=== PATIENT | male | born 1950 | race Caucasian/White ===

== ENCOUNTER 2017-05-11 17:15 | Inpatient (IN) | payer MEDICARE, OTHER ==
[~2017-05-11] VITALS: Ht 182.9 cm; Wt 74.9 kg
[~2017-05-11 17:15] MED LIST: ASPI81CH CHEW; ATEN25TA PO; CIPR0.3S EACH EAR; CYCL5TAB PO; LISI-519 PO; PRAV10TA PO; SPIR25TA PO
[2017-05-11] MEDS ORDERED: SODIUM CHLORIDE 0.9% FLUSH 10 ML FLUSH IVF PRN (17:30)
[2017-05-11] MEDS ORDERED: SODIUM CHLOR 0.9% 1000 ML INJ 1,000 ML IV ONE ×2 (17:30→18:15)
--- NOTE | 2017-05-11 17:38 | RADRPT ---
EXAM DATE/TIME: 05/11/2017 17:31 [facility] COMPARISON: No previous studies available for comparison. INDICATIONS : Chest pain MEDICAL HISTORY : Myocardial infarction. SURGICAL HISTORY : None. ENCOUNTER: Initial ACUITY: 1 day PAIN SCORE: 8/10 LOCATION: Bilateral chest FINDINGS: A single view of the chest demonstrates the lungs to be symmetrically aerated without evidence of mas s, infiltrate or effusion. The cardiomediastinal contours are unremarkable. Osseous structures are intact. The patient is rotated towards the right. CONCLUSION: No acute disease. David Kolb MD on May 11, 2017 at 17:35 Board Certified Radiologist. This report was verified electronically.
[2017-05-11 17:39] VITALS: BP 106/68; PULSE 81; RESP 17; TEMP 98.7; O2SAT 100
[2017-05-11 17:42] VITALS: O2SAT 100
[2017-05-11 17:43] LABS: AUTOMATED NEUTROPHIL # 2.3 TH/MM3 (1.8-7.7); BASOPHIL % 0.4 % (0.0-2.0); EOSINOPHIL # 0.2 TH/MM3 (0-0.4); EOSINOPHIL % 5.1 % (0.0-4.0); HEMO FLAGS DIFF FINAL; LYMPH % 28.6 % (9.0-44.0); LYMPHOCYTE # 1.2 TH/MM3 (1.0-4.8); MEAN CELL VOLUME 95.6 FL (80.0-100.0); MEAN CORPUSCULAR HEMOGLOBIN 32.4 PG (27.0-34.0); MEAN CORPUSCULAR HGB CONC 33.9 % (32.0-36.0); MONO % 11.7 % (0.0-8.0); NEUT % 54.2 % (16.0-70.0); PLATELET COUNT 136 TH/MM3 (150-450); RED BLOOD COUNT 3.34 MIL/MM3 (4.50-5.90); RED CELL DISTRIBUTION WIDTH 12.4 % (11.6-17.2); WHITE BLOOD COUNT 4.3 TH/MM3 (4.0-11.0)
[2017-05-11 17:50] LABS: CHLORIDE 94 MEQ/L (98-107); POTASSIUM 3.2 MEQ/L (3.5-5.1); SODIUM (NA) 131 MEQ/L (136-145)
[2017-05-11 17:53] LABS: ANION GAP 11 MEQ/L (5-15); BICARBONATE 26.1 MEQ/L (21.0-32.0); BLOOD UREA NITROGEN 30 MG/DL (7-18); MAGNESIUM 1.7 MG/DL (1.5-2.5)
[2017-05-11 17:55] LABS: APTT (PATIENT) 29.9 SEC (24.3-30.1); INTERNATIONAL NORMALIZED RATIO 1.1 RATIO
[2017-05-11 17:56] LABS: GLOMERULAR FILTRATION RATE 47 ML/MIN (>89)
[2017-05-11 18:09] LABS: CREATINE KINASE 68 U/L (39-308)
--- NOTE | 2017-05-11 18:09 | RADRPT ---
EXAM DATE/TIME: 05/11/2017 17:38 [facility] COMPARISON: CT BRAIN W/O CONTRAST, September 10, 2016, 11:58. INDICATIONS : Fall. RADIATION DOSE: 56.85 CTDIvol (mGy) MEDICAL HISTORY : Cerebrovascular disease. Cardiovascular disease Hypertension.Anticoagulant therapy. SURGICAL HISTORY : Coronary artery stent. ENCOUNTER: Initial ACUITY: 1 day PAIN SCALE: 4/10 LOCATION: cranial TECHNIQUE: Multiple contiguous axial images were obtained of the head. Using automated exposure control and adj ustment of the mA and/or kV according to patient size, radiation dose was kept as low as reasonably a chievable to obtain optimal diagnostic quality images. DICOM format image data is available electro nically for review and comparison. FINDINGS: CEREBRUM: The ventricles are normal for age. No evidence of midline shift, mass lesion, hemorrhage or acute in farction. No extra-axial fluid collections are seen. POSTERIOR FOSSA: The cerebellum and brainstem are intact. The 4th ventricle is midline. The cerebellopontine angle i s unremarkable. EXTRACRANIAL: The visualized portion of the orbits is intact. SKULL: The calvaria is intact. No evidence of skull fracture. CONCLUSION: No acute disease. Anthony Mcleod MD on May 11, 2017 at 18:06 Board Certified Radiologist. This report was verified electronically.
--- NOTE | 2017-05-11 18:13 | PD ---
HPI Chief Complaint: Chest Pain Time Seen by Provider: 17:21 Travel History International Travel<30 days: No Contact w/Intl Traveler<30days: No Traveled to known affect area: No History of Present Illness HPI The patient 66. He arrives by EMS. He drank alcohol today. His friend gave him nitroglycerin. Shortly thereafter he lost consciousness striking his head. In the ER he tells me he has chest pain in the left chest and the right chest. He states it is stabbing. EMS reports the patient had a blood pressure of about 80/40 on scene and after receiving approximately half a liter of saline his blood pressure increased to about 100/60. He has a history of hyperlipidemia and hypertension. He quit smoking 5 weeks ago. States he drinks about 8 beers per week. He has a history of atrial fibrillation and takes aspirin. Patient has a history of coronary artery disease with 5 stents. PFSH Past Medical History Hx Anticoagulant Therapy: Yes Arthritis: Yes Anxiety: Yes Cardiac Catheterization: Yes Cardiovascular Problems: Yes (A-FIB) High Cholesterol: Yes Chest Pain: Yes Cerebrovascular Accident: Yes (cva) Coronary Artery Disease: Yes Diabetes: No (DENIES) Diminished Hearing: No Hypertension: Yes Myocardial Infarction: Yes (x4 or 5) ?: Not Past Surgical History Abdominal Surgery: Yes (resection of colon r/t injury) Appendectomy: Yes Coronary Stent: Yes (x 5) Social History Alcohol Use: Yes (about 8 beers every day) Tobacco Use: No (QUIT X 5 WEEKS) Substance Use: No Allergies-Medications (Allergen,Severity, Reaction): Coded Allergies: Penicillin (Verified Allergy, Severe, SWELLING ALL OVER BODY, 05/11/17) Watermelon (Verified Allergy, Intermediate, SWELLING, 05/11/17) Reported Meds & Prescriptions Reported Meds & Active Scripts Active Reported Aspirin 81 Mg Chew 81 Mg CHEW HS Flexeril (Cyclobenzaprine HCl) 5 Mg Tab 5 Mg PO HS Spironolactone 25 Mg Tab 25 Mg PO HS Pravastatin 10 Mg Tab 10 Mg PO HS Atenolol 25 Mg Tab 12.5 Mg PO HS Lisinopril 5 Mg Tab 5 Mg PO HS Review of Systems ROS Limitations: Intoxication Physical Exam Narrative GENERAL: 66-year-old male well-nourished developed EtOH on breath answers questions SKIN: Warm and dry. HEAD: Atraumatic. Normocephalic. EYES: Pupils equal and round. No scleral icterus. No injection or drainage. ENT: No nasal bleeding or discharge. Mucous membranes pink and moist. NECK: Trachea midline. No JVD. C-collar present. CARDIOVASCULAR: Irregular. The rate is approximately 85. RESPIRATORY: No accessory muscle use. Clear to auscultation. Breath sounds equal bilaterally. GASTROINTESTINAL: Abdomen soft, non-tender, nondistended. Hepatic and splenic margins not palpable. MUSCULOSKELETAL: Extremities without clubbing, cyanosis, or edema. No obvious deformities. NEUROLOGICAL: Awake and alert. No obvious cranial nerve deficits. Motor grossly within normal limits. Five out of 5 muscle strength in the arms and legs. Normal speech. PSYCHIATRIC: Appropriate mood and affect; insight and judgment normal. Data Data Last Documented VS Vital Signs Date Time Temp Pulse Resp B/P Pulse Ox O2 Delivery O2 Flow Rate FiO2 05/11/17 17:42 100 Room Air 05/11/17 17:39 98.7 81 17 106/68 Vital signs reviewed Orders Electrocardiogram (05/11/17 17:21) Basic Metabolic Panel (Bmp) (05/11/17 17:21) Ckmb (Isoenzyme) Profile (05/11/17 17:21) Complete Blood Count With Diff (05/11/17 17:21) Magnesium (Mg) (05/11/17 17:21) Prothrombin Time / Inr (Pt) (05/11/17 17:21) Act Partial Throm Time (Ptt) (05/11/17 17:21) Troponin I (05/11/17 17:21) Chest, Single Ap (05/11/17 17:21) Ecg Monitoring (05/11/17 17:21) Iv Access Insert/Monitor (05/11/17 17:21) Oximetry (05/11/17 17:21) Oxygen Administration (05/11/17 17:21) Sodium Chloride 0.9% Flush (Ns Flush) (05/11/17 17:30) Sodium Chlor 0.9% 1000 Ml Inj (Ns 1000 M (05/11/17 17:30) Ct Brain W/O Iv Contrast(Rout) (05/11/17 17:21) Ct Cerv Spine W/O Contrast (05/11/17 17:39) Drug Screen, Random Urine (05/11/17 18:10) Sodium Chlor 0.9% 1000 Ml Inj (Ns 1000 M (05/11/17 18:15) Alcohol (Ethanol) (05/11/17 17:30) Mri C Spine W/O Contrast (05/11/17 18:46) Admit Order (Ed Use Only) (05/11/17 18:46) Labs Laboratory Tests Test 05/11/17 17:30 White Blood Count 4.3 TH/MM3 Red Blood Count 3.34 MIL/MM3 Hemoglobin 10.9 GM/DL Hematocrit 32.0 % Mean Corpuscular Volume 95.6 FL Mean Corpuscular Hemoglobin 32.4 PG Mean Corpuscular Hemoglobin 33.9 % Concent Red Cell Distribution Width 12.4 % Platelet Count 136 TH/MM3 Mean Platelet Volume 8.2 FL Neutrophils (%) (Auto) 54.2 % Lymphocytes (%) (Auto) 28.6 % Monocytes (%) (Auto) 11.7 % Eosinophils (%) (Auto) 5.1 % Basophils (%) (Auto) 0.4 % Neutrophils # (Auto) 2.3 TH/MM3 Lymphocytes # (Auto) 1.2 TH/MM3 Monocytes # (Auto) 0.5 TH/MM3 Eosinophils # (Auto) 0.2 TH/MM3 Basophils # (Auto) 0.0 TH/MM3 CBC Comment DIFF FINAL Differential Comment Prothrombin Time 12.0 SEC Prothromb Time International 1.1 RATIO Ratio Activated Partial 29.9 SEC Thromboplast Time Sodium Level 131 MEQ/L Potassium Level 3.2 MEQ/L Chloride Level 94 MEQ/L Carbon Dioxide Level 26.1 MEQ/L Anion Gap 11 MEQ/L Blood Urea Nitrogen 30 MG/DL Creatinine 1.50 MG/DL Estimat Glomerular Filtration 47 ML/MIN Rate Random Glucose 92 MG/DL Calcium Level 8.0 MG/DL Magnesium Level 1.7 MG/DL Total Creatine Kinase 68 U/L Troponin I LESS THAN 0.02 NG/ML Ethyl Alcohol Level 197 MG/DL MDM Medical Decision Making Medical Screen Exam Complete: Yes Emergency Medical Condition: Yes Medical Record Reviewed: Yes Differential Diagnosis NSTEMI, unstable angina, coronary vasospasm, PE, PTX, aortic dissection, pericarditis, myocarditis, endocarditis, PNA, esophageal disease, aneurysm, musculoskeletal etiologies, anxiety, cocaine/sympathomimetic abuse Narrative Course CBC & BMP Diagram 05/11/17 17:30 Troponin is less than 0.02 EKG reveals atrial fibrillation rate of 85 Last [address] 05/11/171720 Signed Impressions: Service Date/Time: Thursday, May 11, 2017 17:38 - CONCLUSION: No acute disease. Anthony Mcleod MD Chest X-Ray 05/11/171720 Signed Impressions: Service Date/Time: Thursday, May 11, 2017 17:31 - CONCLUSION: No acute disease. David Kolb MD Last 24 hours Impressions Cervical Spine CT 05/11/[id number] Signed Impressions: Service Date/Time: Thursday, May 11, 2017 17:38 - CONCLUSION: 1. Degenerative change throughout as described above. 2. Widening of the right C3 C4 facet joint. This could be related to degenerative change. There is clearly degenerative change in the superior and inferior articular facets at this level. Acute widening of this joint cannot be excluded but no other facet joint or disc space appears widened. Given the lack of any other findings, this is likely related to degenerative change. It could be further evaluated with an MRI examination if the patient has neck pain, especially on the right side. 3. Moderate stenosis at C3-C4 level secondary to a diffuse disc bulge and facet hypertrophy. David Kolb MD Head CT 05/11/171720 Signed Impressions: Service Date/Time: Thursday, May 11, 2017 17:38 - CONCLUSION: No acute disease. Anthony Mcleod MD Chest X-Ray 05/11/171720 Signed Impressions: Service Date/Time: Thursday, May 11, 2017 17:31 - CONCLUSION: No acute disease. David Kolb MD Case discussed with Dr. Clemens. We'll send the patient to the main. MR study ordered. Order for Dr. Clemens be notified following the MR performance has been placed. Diagnosis Primary Impression: Chest pain Qualified Code: R07.9 - Chest pain, unspecified type Additional Impressions: Syncope and collapse Abnormal x-ray of cervical spine Alcohol intoxication Qualified Code: F10.929 - Alcohol intoxication, with unspecified complication Admitting Information Admitting Physician Requests: Observation Kel Auguste MD May 11, 2017 18:13
--- NOTE | 2017-05-11 18:31 | RADRPT ---
EXAM DATE/TIME: 05/11/2017 17:38 [facility] COMPARISON: No previous studies available for comparison. INDICATIONS : Fall. RADIATION DOSE: 24.16 CTDIvol (mGy) MEDICAL HISTORY : Cerebrovascular disease. Cardiovascular disease. Hypertension. Anticoagulant therapy. SURGICAL HISTORY : Coronary artery stent. ENCOUNTER: Initial ACUITY: 1 day PAIN SCALE: 4/10 LOCATION: Neck TECHNIQUE: Volumetric scanning of the cervical spine was performed. Multiplanar reconstructions in the sagittal, coronal and oblique axial planes were performed. Using automated exposure control and adjustment o f the mA and/or kV according to patient size, radiation dose was kept as low as reasonably achievable to obtain optimal diagnostic quality images. DICOM format image data is available electronically f or review and comparison. FINDINGS: VERTEBRAE: The craniovertebral junction is intact. The C1 ring is intact. The dens is intact. The C1-C2 artic ulation is normal. The cervical vertebral bodies are normal in height. There is minimal anterior shah bluxation of C5 on C6 likely secondary to a facet hypertrophy. The patient does have widening of the right C3-C4 facet joint. There is no malalignment at the facet joints. The left facet joint appear s aligned. There is facet hypertrophy bilaterally at this level being worse on the right. The disc space is preserved at this level. C2-C3: The bony spinal canal is normal in size. No evidence of disc bulge or herniation. The neural forami na are bilaterally patent. There is mild facet hypertrophy. C3-C4: Again noted is the widening of the right facet joint. There is irregularity at the facet joint likel y from underlying chronic degenerative change. No other facet joint appears widened. The facet join t widening measures 3.5 mm. The remaining facet joints measure approximately 2 mm in thickness. The re appears to be mild disc bulge. There does appear to be narrowing of the thecal sac. There is unc overtebral hypertrophy being worse on the right. There is narrowing of the right neural foramen. Th e left neural foramen appears grossly intact. C4-C5: There is minimal disc bulge. There does appear to be CSF around the cord. There are mild anterior m arginal osteophytes. There is moderate facet hypertrophy. There is mild uncovertebral hypertrophy. The neural foramina are grossly intact. C5-C6: Again noted is the mild anterior subluxation of C5 on C6. There is mild bulging at the disc. There is severe facet hypertrophy being worse on the right. There is mild bilateral uncovertebral hypertro phy. There is minimal narrowing of the neural foramina especially on the left. C6-C7: The disc demonstrates mild decreased height. A significant impression on the thecal sac is not seen. There is moderate facet hypertrophy. There is mild to moderate uncovertebral hypertrophy. The be ral foramina appear grossly intact. C7-T1: The disc space is intact. No spinal stenosis is identified. There is mild facet hypertrophy. The n eural foramina are normal. CONCLUSION: 1. Degenerative change throughout as described above. 2. Widening of the right C3 C4 facet joint. This could be related to degenerative change. There is clearly degenerative change in the superior and inferior articular facets at this level. Acute wide zander of this joint cannot be excluded but no other facet joint or disc space appears widened. Given the lack of any other findings, this is likely related to degenerative change. It could be further e valuated with an MRI examination if the patient has neck pain, especially on the right side. 3. Moderate stenosis at C3-C4 level secondary to a diffuse disc bulge and facet hypertrophy. David Kolb MD on May 11, 2017 at 18:07 Board Certified Radiologist. This report was verified electronically.
[2017-05-11 19:00] VITALS: BP 107/66; PULSE 76; RESP 17; O2SAT 100
[2017-05-11] MEDS ORDERED: NALOXONE HCL 0.4 MG/ML AMP IV PRN (19:15)
[2017-05-11] MEDS ORDERED: MAGNESIUM HYDROXIDE SUSP 30 ML CUP PO PRN (19:15)
[2017-05-11] MEDS ORDERED: ONDANSETRON HCL 4 MG/2 ML VIAL IVP PRN (19:15)
[2017-05-11] MEDS ORDERED: SENNOSIDES 8.6 MG TAB PO PRN (19:15)
[2017-05-11] MEDS ORDERED: SODIUM CHLORIDE 0.9% FLUSH 10 ML FLUSH IV FLUSH PRN (19:15)
[2017-05-11] MEDS ORDERED: BISACODYL 10 MG SUPP RECTAL PRN (19:15)
[2017-05-11] MEDS ORDERED: LACTULOSE SYRUP 20 GM/30 ML CUP PO PRN (19:15)
[2017-05-11 20:14] LABS: AMPHETAMINE, URINE NEG (NEG); BARBITURATES, URINE NEG (NEG)
[2017-05-11 20:15] LABS: COCAINE, URINE NEG (NEG)
[2017-05-11] MEDS: HEPARIN SODIUM - SQ 10,000 UNITS/ML VIAL SQ SCH (20:54)
[2017-05-11 20:55] VITALS: BP 115/70; PULSE 93; RESP 18; O2SAT 96
--- NOTE | 2017-05-11 21:04 | RADRPT ---
EXAM DATE/TIME: 05/11/2017 20:14 [facility] COMPARISON: No previous studies available for comparison. INDICATIONS : Trauma. Fall and hit head today. MEDICAL HISTORY : Cardiovascular disease Hypertension. Hypercholesterolemia. AFIB SURGICAL HISTORY : Appendectomy. Colon resection. Stent placement. ENCOUNTER: Initial ACUITY: 1 day PAIN SCORE: 3/10 LOCATION: Bilateral neck region. TECHNIQUE: Multiplanar, multisequence MRI examination of the cervical spine was performed. FINDINGS: Cervical spondylosis is noted at C3-C4, C4-C5, C5-C6 and C6-C7. Moderate circumferential spinal sten osis is noted at C3-C4 secondary to a diffuse disc bulge and facet joint hypertrophy bilaterally. Mo derate bilateral foraminal narrowing is also noted. Mild circumferential spinal stenosis and moderat e bilateral foraminal narrowing is noted at C4-C5 and C5-C6 secondary to diffuse disc bulges and face t joint hypertrophy bilaterally. Minimal circumferential spinal stenosis and mild bilateral foramina l narrowing is noted at C6-C7 secondary to diffuse disc bulge and facet joint hypertrophy bilaterally . The cervical spinal cord is normal in signal intensity and morphology. CONCLUSION: 1. Moderate spinal stenosis and bilateral foraminal narrowing at C3-C4. 2. Mild spinal stenosis and moderate bilateral foraminal narrowing at C4-C5 and C5-C6. 3. Minimal spinal stenosis and mild bilateral foraminal narrowing at C6-C7. Anthony Mcleod MD on May 11, 2017 at 20:53 Board Certified Radiologist. This report was verified electronically.
[2017-05-11 21:22] VITALS: BP 132/86; PULSE 81; RESP 18; TEMP 97.8; O2SAT 100
[2017-05-11] MEDS: ASPIRIN 81 MG CHEW TAB CHEW SCH (22:19)
[2017-05-11] MEDS: SODIUM CHLORIDE 0.9% FLUSH 10 ML FLUSH IV FLUSH SCH (22:19)
[2017-05-11] MEDS: PRAVASTATIN SOD 10 MG TAB PO SCH (22:19)
[2017-05-11] MEDS: LISINOPRIL 5 MG TAB PO SCH (22:20)
[2017-05-11] MEDS: SPIRONOLACTONE 25 MG TAB PO SCH (22:20)
[2017-05-11] MEDS: DOCUSATE SODIUM 50 MG/SENNA 8.6 MG TAB PO SCH (22:20)
[2017-05-11] MEDS: ATENOLOL 25 MG TAB PO SCH (22:21)
[2017-05-11] MEDS: CYCLOBENZAPRINE HCL 10 MG TAB PO SCH (22:22)
[2017-05-12] VITALS (8 sets, daily range): BP systolic 115–143; BP diastolic 74–93; PULSE 75–94; RESP 16–20; TEMP 97.9–98.3; O2SAT 97–100
[2017-05-12] MEDS: ACETAMINOPHEN/HYDROcodone 325 MG/10 MG TAB PO PRN ×3 (04:30→21:55)
--- NOTE | 2017-05-12 07:55 | HHI.HP ---
History of Present Illness Service Family Primary Care Physician Dr. Clemens Admission Diagnosis Chest Pain, EtOH, Radiographic CSpine Abnormality, Syncope Diagnoses: (1) Hyponatremia (2) Hypertension (3) Alcohol intoxication (4) Syncope and collapse (5) Chest pain (6) Abnormal x-ray of cervical spine History of Present Illness Patient is a 66 year old male who presented to ED via EMS s/p syncopal event and chest pain. Patient reports that over the last few months he has had chest discomfort on and off that has gone away with antacids. Yesterday he reported that his chest pain was much worse. He did take nitroglycerin. Reported that when he lost consciousness he hit head. Head CT with no acute findings. MRI of spine showing mild to moderate spinal stenosis and bilateral foraminal narrowing. 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 He has a past medical history CAD with 5 stents he thought the last stents where placed in 2011 to 2013. He also has a past medical history of arthritis, NE, AFIB, HTN, HLD, and ETOH abuse. He quit smoking 5 weeks ago. He drinks about 8 beers per day with a alcohol level of 197 in ED. Cardiology consulted and initial troponin less 0.02. Patient was also found to be hyponatremic at 131 and hypokalemic at 3.2 Review of Systems Constitutional: COMPLAINS OF: Fatigue, DENIES: Change in appetite Respiratory: DENIES: Cough, Snoring, Sputum production, Shortness of breath Cardiovascular: COMPLAINS OF: Chest pain, DENIES: Palpitations, Lower Extremity Edema Gastrointestinal: DENIES: Abdominal pain, Bloody stools, Constipation, Diarrhea Musculoskeletal: DENIES: Muscle aches, Stiffness Psychiatric: DENIES: Confusion, Depression, Agitation Past Family Social History Allergies: Coded Allergies: Penicillin (Verified Allergy, Severe, SWELLING ALL OVER BODY, 05/11/17) Watermelon (Verified Allergy, Intermediate, SWELLING, 05/11/17) Past Medical History HTN HLD AFIB Arthritis CAD Past Surgical History Colon resection Appendectomy coronary stent X 5 Active Ordered Medications Current Medications Medications (Trade) Dose Ordered Sig/Teo Route Start Time Stop Time Status Last Admin (NS Flush) 2 ml UNSCH PRN IV FLUSH 05/11/17 19:15 (NS Flush) 2 ml BID IV FLUSH 05/11/17 21:00 05/11/17 22:19 (Zofran Inj) 4 mg Q6H PRN IVP 05/11/17 19:15 (Heparin Inj) 5,000 units Q12H SQ 05/11/17 20:00 05/11/17 20:54 (Narcan Inj) 0.4 mg UNSCH PRN IV 05/11/17 19:15 (Jen-Colace) 1 tab BID PO 05/11/17 21:00 05/11/17 22:20 (Milk Of Magnesia Liq) 30 ml Q12H PRN PO 05/11/17 19:15 (Senokot) 17.2 mg Q12H PRN PO 05/11/17 19:15 (Dulcolax Supp) 10 mg DAILY PRN RECTAL 05/11/17 19:15 (Lactulose Liq) 30 ml DAILY PRN PO 05/11/17 19:15 (Aspirin Chew) 81 mg HS CHEW 05/11/17 21:00 05/11/17 22:19 (Tenormin) 12.5 mg HS PO 05/11/17 21:00 05/11/17 22:21 (Flexeril) 5 mg HS PO 05/11/17 21:00 05/11/17 22:22 (Prinivil) 5 mg HS PO 05/11/17 21:00 05/11/17 22:20 (Pravachol) 10 mg HS PO 05/11/17 21:00 05/11/17 22:19 (Aldactone) 25 mg HS PO 05/11/17 21:00 05/11/17 22:20 (Protonix) 40 mg DAILY PO 05/12/17 09:00 ([place] 10-325 Mg) 1 tab Q6H PRN PO 05/11/17 23:45 05/12/17 04:30 Family History Mother with HTN Father diabetes and heart disease Social History Drinks 8 beers per day Quit smoking 5 weeks ago Lives with friend Retired Physical Exam Vital Signs Vital Signs Date Time Temp Pulse Resp B/P Pulse Ox O2 Delivery O2 Flow Rate FiO2 05/12/17 04:00 98.0 93 18 131/79 100 05/12/17 01:31 75 05/12/17 00:00 98.0 83 16 115/81 99 05/11/17 21:22 97.8 81 18 132/86 100 05/11/17 20:55 93 18 115/70 96 Room Air 05/11/17 19:00 76 17 107/66 100 Room Air 05/11/17 17:42 100 Room Air 05/11/17 17:42 100 Room Air 05/11/17 17:39 98.7 81 17 106/68 100 Physical Exam GENERAL: 66 year old male cooperative SKIN: Warm and dry. Bug bites present HEAD: Atraumatic. Normocephalic. EYES: Pupils equal and round. No scleral icterus. No injection or drainage. ENT: No nasal bleeding or discharge. Mucous membranes pink and moist. NECK: Trachea midline. No JVD. C-collar present. CARDIOVASCULAR: Irregular. The rate is approximately 85. RESPIRATORY: No accessory muscle use. Clear to auscultation. Breath sounds equal bilaterally. GASTROINTESTINAL: Abdomen soft, non-tender, nondistended. MUSCULOSKELETAL: Extremities without clubbing, cyanosis, or edema. No obvious deformities. NEUROLOGICAL: Awake and alert. Normal speech. PSYCHIATRIC: Appropriate mood and affect; insight and judgment normal. Laboratory Laboratory Tests Test 05/11/17 05/11/17 17:30 19:59 White Blood Count 4.3 Red Blood Count 3.34 Hemoglobin 10.9 Hematocrit 32.0 Mean Corpuscular Volume 95.6 Mean Corpuscular Hemoglobin 32.4 Mean Corpuscular Hemoglobin 33.9 Concent Red Cell Distribution Width 12.4 Platelet Count 136 Mean Platelet Volume 8.2 Neutrophils (%) (Auto) 54.2 Lymphocytes (%) (Auto) 28.6 Monocytes (%) (Auto) 11.7 Eosinophils (%) (Auto) 5.1 Basophils (%) (Auto) 0.4 Neutrophils # (Auto) 2.3 Lymphocytes # (Auto) 1.2 Monocytes # (Auto) 0.5 Eosinophils # (Auto) 0.2 Basophils # (Auto) 0.0 CBC Comment DIFF FINAL Differential Comment Prothrombin Time 12.0 Prothromb Time International 1.1 Ratio Activated Partial 29.9 Thromboplast Time Sodium Level 131 Potassium Level 3.2 Chloride Level 94 Carbon Dioxide Level 26.1 Anion Gap 11 Blood Urea Nitrogen 30 Creatinine 1.50 Estimat Glomerular Filtration 47 Rate Random Glucose 92 Calcium Level 8.0 Magnesium Level 1.7 Total Creatine Kinase 68 Troponin I LESS THAN 0.02 Ethyl Alcohol Level 197 Urine Opiates Screen NEG Urine Barbiturates Screen NEG Urine Amphetamines Screen NEG Urine Benzodiazepines Screen NEG Urine Cocaine Screen NEG Urine Cannabinoids Screen NEG Result Diagram: 05/11/17 1730 05/11/17 1730 Imaging Last 72 hours Impressions Cervical Spine MRI 05/11/17 1846 Signed Impressions: Service Date/Time: Thursday, May 11, 2017 20:14 - CONCLUSION: 1. Moderate spinal stenosis and bilateral foraminal narrowing at C3-C4. 2. Mild spinal stenosis and moderate bilateral foraminal narrowing at C4-C5 and C5-C6. 3. Minimal spinal stenosis and mild bilateral foraminal narrowing at C6-C7. Anthony Mcleod MD Cervical Spine CT 05/11/17 1739 Signed Impressions: Service Date/Time: Thursday, May 11, 2017 17:38 - CONCLUSION: 1. Degenerative change throughout as described above. 2. Widening of the right C3 C4 facet joint. This could be related to degenerative change. There is clearly degenerative change in the superior and inferior articular facets at this level. Acute widening of this joint cannot be excluded but no other facet joint or disc space appears widened. Given the lack of any other findings, this is likely related to degenerative change. It could be further evaluated with an MRI examination if the patient has neck pain, especially on the right side. 3. Moderate stenosis at C3-C4 level secondary to a diffuse disc bulge and facet hypertrophy. David Kolb MD Head CT 05/11/17 172 Signed Impressions: Service Date/Time: Thursday, May 11, 2017 17:38 - CONCLUSION: No acute disease. Anthony Mcleod MD Chest X-Ray 05/11/17 172 Signed Impressions: Service Date/Time: Thursday, May 11, 2017 17:31 - CONCLUSION: No acute disease. David oKlb MD Assessment and Plan Problem List: (1) Chest pain Status: Acute Plan: Patient denies chest pain this AM. Cardiology consulted. Trop pending this AM initial trop less than 0.02. (2) Hyponatremia Status: Acute Plan: Sodium 131 recheck in AM will monitor (3) Hypertension Status: Acute Plan: Continue current regimen well controlled (4) Syncope and collapse Status: Acute Plan: Will monitor. After cardiac evaluation will obtain PT (5) Alcohol intoxication Status: Acute Plan: Will add folic acid and thiamine daily (6) Abnormal x-ray of cervical spine Status: Acute Plan: Mild to moderate spinal stenosis and bilateral foraminal narrowing. Will discuss with Dr. Clemens and start PT after cardiology evaluation. (7) Afib Status: Acute Plan: Patient reports that he thought he has had this before however is only on aspirin. Cardiology to recommend anticoagulation. (8) HLD (hyperlipidemia) Status: Acute Plan: Lipid panel ordered. Continue statin (9) Hypokalemia Status: Acute Plan: Labs pending this AM. K 3.2 in ER Assessment and Plan Assessment and plan discussed with Dr. Clemens Discussed Condition With Nursing Discharge Planning Home Physician Attestation I and the ORTHOPEDIC ASSISTANT have both examined this patient and reviewed this note and I agree with these findings and plan of care. Bg Clemens DO Problem Qualifiers (1) Alcohol intoxication: Qualified Code: F10.929 - Alcohol intoxication, with unspecified complication (2) Chest pain: Qualified Code: R07.9 - Chest pain, unspecified type Karla Schreiber [facility] May 12, 2017 07:55
[2017-05-12] MEDS: HEPARIN SODIUM - SQ 10,000 UNITS/ML VIAL SQ SCH ×2 (08:00→21:57)
[2017-05-12 08:29] LABS: AUTOMATED NEUTROPHIL # 2.6 TH/MM3 (1.8-7.7); BASOPHIL % 0.3 % (0.0-2.0); EOSINOPHIL # 0.4 TH/MM3 (0-0.4); EOSINOPHIL % 7.5 % (0.0-4.0); HEMATOCRIT 31.9 % (39.0-51.0); HEMO FLAGS DIFF FINAL; LYMPH % 30.8 % (9.0-44.0); LYMPHOCYTE # 1.6 TH/MM3 (1.0-4.8); MEAN CELL VOLUME 94.9 FL (80.0-100.0); MEAN CORPUSCULAR HEMOGLOBIN 33.5 PG (27.0-34.0); MEAN CORPUSCULAR HGB CONC 35.3 % (32.0-36.0); NEUT % 50.4 % (16.0-70.0); PLATELET COUNT 139 TH/MM3 (150-450); RED BLOOD COUNT 3.36 MIL/MM3 (4.50-5.90); RED CELL DISTRIBUTION WIDTH 13.5 % (11.6-17.2); WHITE BLOOD COUNT 5.2 TH/MM3 (4.0-11.0)
[2017-05-12 08:43] LABS: ALT (GPT) 76 U/L (12-78); ANION GAP 8 MEQ/L (5-15); AST (GOT) 120 U/L (15-37); BICARBONATE 25.8 MEQ/L (21.0-32.0); BLOOD UREA NITROGEN 25 MG/DL (7-18); CHLORIDE 100 MEQ/L (98-107); GLOMERULAR FILTRATION RATE 62 ML/MIN (>89); POTASSIUM 4.1 MEQ/L (3.5-5.1); SODIUM (NA) 134 MEQ/L (136-145)
[2017-05-12 08:46] LABS: ALKALINE PHOSPHATASE 86 U/L (45-117); TOTAL BILIRUBIN ADULT 0.9 MG/DL (0.2-1.0)
[2017-05-12] MEDS: THIAMINE HCL 100 MG TAB PO SCH (09:48)
[2017-05-12] MEDS: DOCUSATE SODIUM 50 MG/SENNA 8.6 MG TAB PO SCH ×2 (09:49→21:00)
[2017-05-12] MEDS: FOLIC ACID 1 MG TAB PO SCH (09:49)
[2017-05-12] MEDS: SODIUM CHLORIDE 0.9% FLUSH 10 ML FLUSH IV FLUSH SCH ×2 (09:49→22:02)
[2017-05-12] MEDS: PANTOPRAZOLE SOD 40 MG DELAYED RELEASE TAB PO SCH (09:49)
[2017-05-12 10:13] LABS: MAGNESIUM 1.6 MG/DL (1.5-2.5)
[2017-05-12 10:22] LABS: FREE T3 2.23 PG/ML (2.18-3.98); FREE T4 1.19 NG/DL (0.76-1.46)
[2017-05-12] MEDS: MAGNESIUM SULFATE 1 GM PREMIX 100 ML IV SCH ×2 (11:53→13:00)
--- NOTE | 2017-05-12 18:03 | MB ---
cc: DANTE HUNTER DATE OF CONSULTATION 05/12/2017 HISTORY Mr. Ruiz is a 66-year-old white male with history of coronary artery disease, myocardial infarction, coronary stenting. He has had a several week history of sharp substernal chest discomfort which lasts for several seconds and is improved with antacids. It usually occurs at rest. He had syncope prior to admission and hit his head. He recently moved from [place]. He is a heavy drinker. PAST MEDICAL HISTORY Positive for: 1. Coronary artery disease, five stent placement several years ago. 2. Hypertension. 3. Dyslipidemia. 4. Atrial fibrillation. 5. Arthritis. 6. Colon resection. 7. Appendectomy. MEDICATIONS Include: 1. Lisinopril. 2. Atenolol. 3. Cyclobenzaprine. 4. Pravastatin. 5. Spironolactone. 6. Aspirin. ALLERGIES PENICILLIN, [place]ELON. SOCIAL HISTORY Patient quit smoking 5 months ago. He drinks about eight beers daily. FAMILY HISTORY Positive for heart disease in his father. REVIEW OF SYSTEMS Otherwise negative. PHYSICAL EXAMINATION VITAL SIGNS: Blood pressure 130/75, pulse 87 and regular. HEENT: Negative. 2+ carotid upstrokes. No bruits. LUNGS: Clear. HEART: Irregular. No murmur, gallop or rub. ABDOMEN: Soft. No bruits. EXTREMITIES: Without edema. + distal pulses. NEUROLOGIC: Examination grossly nonfocal. SKIN: With multiple insect bites. EKG was reviewed and showed . DIAGNOSES 1. Atypical chest pain. 2. Coronary artery disease with history of myocardial infarction and coronary stenting. 3. Chronic atrial fibrillation. 4. Hypertension. 5. Dyslipidemia. 6. Heavy alcohol use. 7. Previous history of smoking. 8. Syncope. DISPOSITION Mr. Ruiz will be monitored on telemetry. He has history of chronic atrial fibrillation but refused to take warfarin in the past. He has been ruled out for myocardial function by enzymes. His chest pain is atypical. Recommend to continue therapy for coronary artery disease including aggressive modification of his cardiac risk factors. We will obtain records from his previous foxer out of state. I will follow him for cardiology during his hospitalization. He is interested to follow up in our office for his cardiac problems. He was counseled to decrease the heavy alcohol use. MD DWAIN Brian /2:15 PM /5:55 PM
[2017-05-12] MEDS: ASPIRIN 81 MG CHEW TAB CHEW SCH (21:54)
[2017-05-12] MEDS: LISINOPRIL 5 MG TAB PO SCH (21:54)
[2017-05-12] MEDS: CYCLOBENZAPRINE HCL 10 MG TAB PO SCH (21:54)
[2017-05-12] MEDS: SPIRONOLACTONE 25 MG TAB PO SCH (21:55)
[2017-05-12] MEDS: ATENOLOL 25 MG TAB PO SCH (21:56)
[2017-05-12] MEDS: PRAVASTATIN SOD 10 MG TAB PO SCH (21:56)
[2017-05-13] VITALS: BP 146/80; PULSE 84; RESP 16; TEMP 97.8; O2SAT 98
[2017-05-13 04:00] VITALS: BP 142/89; PULSE 98; RESP 18; TEMP 98.9; O2SAT 97
--- NOTE | 2017-05-13 07:27 | HHI.FF ---
Face to Face Verification Diagnosis: (1) Afib (2) Hypertension (3) Chest pain Home Health Nursing Order: Medical education Signs/symptoms of disease process Medication education-adverse effect I have seen patient Sergey Ruiz on 05/13/17. My clinical findings support the need for the requested home health care services because: Med compliance is questionable Need for psychosocial assistance I certify that my clinical findings support that this patient is homebound because: Need for psychosocial assistance Poor cardiac reserve Karla Schreiber May 13, 2017 07:27
--- NOTE | 2017-05-13 07:54 | EKG ---
Date Performed: 05/11/2017 Time Performed: 19:36:42 PTAGE: 66 years EKG: ATRIAL FIBRILLATION ABNORMAL RHYTHM ECG PREVIOUS TRACING : 05/11/2017 17.33 DOCTOR: Nichol Cotton Interpretating Date/Time 05/13/2017 07:53:58
--- NOTE | 2017-05-13 07:56 | EKG ---
Date Performed: 05/11/2017 Time Performed: 17:33:22 PTAGE: 66 years EKG: ATRIAL FIBRILLATION NONSPECIFIC T-WAVE ABNORMALITY ABNORMAL RHYTHM ECG PREVIOUS TRACING : 09/10/2016 13.58 DOCTOR: Nichol Cotton Interpretating Date/Time 05/13/2017 07:54:57
[2017-05-13 08:00] VITALS: BP 151/79; PULSE 96; RESP 20; TEMP 98; O2SAT 96
[2017-05-13] MEDS: SODIUM CHLORIDE 0.9% FLUSH 10 ML FLUSH IV FLUSH SCH (09:08)
[2017-05-13] MEDS: DOCUSATE SODIUM 50 MG/SENNA 8.6 MG TAB PO SCH (09:08)
[2017-05-13] MEDS: PANTOPRAZOLE SOD 40 MG DELAYED RELEASE TAB PO SCH (09:08)
[2017-05-13] MEDS: THIAMINE HCL 100 MG TAB PO SCH (09:08)
[2017-05-13] MEDS: HEPARIN SODIUM - SQ 10,000 UNITS/ML VIAL SQ SCH (09:08)
[2017-05-13] MEDS: FOLIC ACID 1 MG TAB PO SCH (09:08)
[2017-05-13] MEDS: ACETAMINOPHEN/HYDROcodone 325 MG/10 MG TAB PO PRN (09:14)
[2017-05-13 09:16] VITALS: PULSE 116
[2017-05-13 10:16] LABS: AUTOMATED NEUTROPHIL # 2.3 TH/MM3 (1.8-7.7); BASOPHIL % 0.8 % (0.0-2.0); EOSINOPHIL # 0.4 TH/MM3 (0-0.4); EOSINOPHIL % 11.2 % (0.0-4.0); HEMATOCRIT 32.3 % (39.0-51.0); HEMO FLAGS DIFF FINAL; LYMPH % 18.1 % (9.0-44.0); LYMPHOCYTE # 0.7 TH/MM3 (1.0-4.8); MEAN CELL VOLUME 96.1 FL (80.0-100.0); MEAN CORPUSCULAR HEMOGLOBIN 33.7 PG (27.0-34.0); MEAN CORPUSCULAR HGB CONC 35.1 % (32.0-36.0); MONO % 11.7 % (0.0-8.0); NEUT % 58.2 % (16.0-70.0); PLATELET COUNT 142 TH/MM3 (150-450); RED BLOOD COUNT 3.36 MIL/MM3 (4.50-5.90); RED CELL DISTRIBUTION WIDTH 13.5 % (11.6-17.2); WHITE BLOOD COUNT 3.9 TH/MM3 (4.0-11.0)
[2017-05-13 10:52] LABS: BICARBONATE 27.5 MEQ/L (21.0-32.0); POTASSIUM 4.2 MEQ/L (3.5-5.1)
[2017-05-13 10:57] LABS: HDL CHOLESTEROL 38.1 MG/DL (40.0-60.0)
[2017-05-13 12:00] VITALS: BP 150/90; PULSE 88; RESP 20; TEMP 98.4; O2SAT 99
[2017-05-13] MEDS ORDERED: ATEN25TA PO (13:18)
[2017-05-13] MEDS ORDERED: PANT40TA3 PO (13:18)
[2017-05-13] MEDS ORDERED: GNP100TA3 PO (13:18)
[2017-05-13] MEDS ORDERED: SPIR25 PO (13:18)
[2017-05-13] MEDS ORDERED: FOLI1TAB6 PO (13:18)
[2017-05-13] MEDS ORDERED: ASPI81CH25 CHEW (13:18)
[2017-05-13] MEDS ORDERED: PRAV10TA PO (13:18)
[2017-05-13] MEDS ORDERED: LISI-519 PO (13:18)
[2017-05-13] MEDS ORDERED: CYCL1TAB29 PO (13:18)
--- NOTE | 2017-05-13 13:28 | HHI.DS ---
Discharge Summary Admission Date May 11, 2017 at 18:50 Admitting Diagnosis Chest Pain, EtOH, Radiographic CSpine Abnormality, Syncope (1) Alcohol intoxication (2) Afib (3) Hypertension (4) Hyponatremia Brief History Patient is a 66 year old male who presented to ED via EMS s/p syncopal event and chest pain. Patient reports that over the last few months he has had chest discomfort on and off that has gone away with antacids. Yesterday he reported that his chest pain was much worse. He did take nitroglycerin. Reported that when he lost consciousness he hit head. Head CT with no acute findings. MRI of spine showing mild to moderate spinal stenosis and bilateral foraminal narrowing. He is not followed by a automotive porter in this state. He has a past medical history CAD with 5 stents he thought the last stents where placed in 2011 to 2013. He also has a past medical history of arthritis, OR, AFIB, HTN, HLD, and ETOH abuse. He quit smoking 5 weeks ago. He drinks about 8 beers per day with a alcohol level of 197 in ED. Cardiology consulted and initial troponin less 0.02. Patient was also found to be hyponatremic at 131 and hypokalemic at 3.2 CBC/BMP: 05/13/17 0914 05/13/17 0914 Significant Findings Laboratory Tests Test 05/11/17 05/12/17 05/13/17 17:30 07:42 09:14 Red Blood Count 3.34 MIL/MM3 3.36 MIL/MM3 3.36 MIL/MM3 (4.50-5.90) (4.50-5.90) (4.50-5.90) Hemoglobin 10.9 GM/DL 11.3 GM/DL 11.3 GM/DL (13.0-17.0) (13.0-17.0) (13.0-17.0) Hematocrit 32.0 % 31.9 % 32.3 % (39.0-51.0) (39.0-51.0) (39.0-51.0) Platelet Count 136 TH/MM3 139 TH/MM3 142 TH/MM3 (150-450) (150-450) (150-450) Monocytes (%) (Auto) 11.7 % 11.0 % 11.7 % (0.0-8.0) (0.0-8.0) (0.0-8.0) Eosinophils (%) (Auto) 5.1 % (0.0-4.0) 7.5 % (0.0-4.0) 11.2 % (0.0-4.0) Prothrombin Time 12.0 SEC (9.8-11.6) Sodium Level 131 MEQ/L 134 MEQ/L 134 MEQ/L (136-145) (136-145) (136-145) Potassium Level 3.2 MEQ/L (3.5-5.1) Chloride Level 94 MEQ/L (98-107) Blood Urea Nitrogen 30 MG/DL (7-18) 25 MG/DL (7-18) 21 MG/DL (7-18) Creatinine 1.50 MG/DL (0.60-1.30) Estimat Glomerular Filtration 47 ML/MIN (>89) 62 ML/MIN (>89) 64 ML/MIN (>89) Rate Calcium Level 8.0 MG/DL (8.5-10.1) Troponin I LESS THAN 0.02 LESS THAN 0.02 NG/ML NG/ML (0.02-0.05) (0.02-0.05) Ethyl Alcohol Level 197 MG/DL (0-5) Random Glucose 68 MG/DL 128 MG/DL (74-106) (74-106) Aspartate Amino Transf 120 U/L (15-37) (AST/SGOT) Albumin 2.6 GM/DL (3.4-5.0) White Blood Count 3.9 TH/MM3 (4.0-11.0) Lymphocytes # (Auto) 0.7 TH/MM3 (1.0-4.8) Cholesterol Level 73 MG/DL (120-200) HDL Cholesterol 38.1 MG/DL (40.0-60.0) PE at Discharge GENERAL: Alert and cooperative SKIN: Warm and dry. HEAD: Normocephalic. EYES: No scleral icterus. No injection or drainage. NECK: Supple, trachea midline. No JVD or lymphadenopathy. CARDIOVASCULAR: Regular rate and rhythm without murmurs, gallops, or rubs. RESPIRATORY: Breath sounds equal bilaterally. No accessory muscle use. GASTROINTESTINAL: Abdomen soft, non-tender, nondistended. MUSCULOSKELETAL: No cyanosis, or edema. BACK: Nontender without obvious deformity. No CVA tenderness. Hospital Course Patient is a 66 year old male who presented to ED via EMS s/p syncopal event and chest pain. Patient reports that over the last few months he has had chest discomfort on and off that has gone away with antacids. Yesterday he reported that his chest pain was much worse. He did take nitroglycerin. Reported that when he lost consciousness he hit head. Head CT with no acute findings. MRI of spine showing mild to moderate spinal stenosis and bilateral foraminal narrowing. He is not followed by a automotive porter in this state. He has a past medical history CAD with 5 stents he thought the last stents where placed in 2011 to 2013. He also has a past medical history of arthritis, OR, AFIB, HTN, HLD, and ETOH abuse. He quit smoking 5 weeks ago. He drinks about 8 beers per day with a alcohol level of 197 in ED. Cardiology consulted and initial troponin less 0.02 which remained less than 0.02. Patient was followed by automotive porter during his stay and will follow up with cardiology after discharge for any needed tests. He is chest pain free now. He is AFIB and has refused anticoagulation secondary to side effects and cost this has been at length will be followed by cardiology. He was counseled to reduce risk factors and reduce ETOH use. He will be discharged on protonix for GERD which could have been his reason for chest discomfort. He has follow up appt scheduled with [facility]. Pt Condition on Discharge: Good Discharge Disposition: Disch w/ Home Health Serv Discharge Instructions DIET: Follow Instructions for: Heart Healthy Diet Activities you can perform: Regular-No Restrictions New Medications: Aspirin (Aspirin Low Strength) 81 Mg Chew 81 MG CHEW HS Blood Clot Prevention #30 EA Atenolol (Atenolol) 25 Mg Tab 12.5 MG PO HS Blood Pressure Management #30 TAB Cyclobenzaprine (Flexeril) 10 Mg Tab 5 MG PO HS Muscle Spasm #30 TAB Folic Acid (Folic Acid) 1 Mg Tablet 1 MG PO DAILY Electrolyte Replacement #30 BOTTLE Lisinopril (Lisinopril) 5 Mg Tab 5 MG PO HS Blood Pressure Management #30 TAB Pantoprazole (Pantoprazole) 40 Mg Tab 40 MG PO DAILY Manage Heartburn #30 TAB Pravastatin (Pravastatin) 10 Mg Tab 10 MG PO HS Cholesterol Management #30 TAB Spironolactone (Aldactone) 25 Mg Tab 25 MG PO HS Blood Pressure Management #30 TAB Thiamine HCl (Gnp Vitamin B-1) 100 Mg Tab 100 MG PO DAILY Electrolyte Replacement #30 TAB Discontinued Medications: Aspirin (Aspirin) 81 Mg Chew 81 MG CHEW HS Ref 0 TAB Atenolol (Atenolol) 25 Mg Tab 12.5 MG PO HS Blood Pressure Management #30 Ref 0 TAB Cyclobenzaprine (Flexeril) 5 Mg Tab 5 MG PO HS Muscle Spasm #90 Ref 0 TAB Lisinopril (Lisinopril) 5 Mg Tab 5 MG PO HS Blood Pressure Management #30 Ref 0 TAB Pravastatin (Pravastatin) 10 Mg Tab 10 MG PO HS Cholesterol Management #30 Ref 0 TAB Spironolactone (Spironolactone) 25 Mg Tab 25 MG PO HS #30 Ref 0 TAB Karla Schreiber May 13, 2017 13:28
--- NOTE | 2017-05-13 13:55 | PD.CARD.PN ---
Subjective Subjective Remarks CP improved, no SOB, feels better Objective Medications Current Medications Medications (Trade) Dose Ordered Sig/Teo Route Start Time Stop Time Status Last Admin (NS Flush) 2 ml UNSCH PRN IV FLUSH 05/11/17 19:15 (NS Flush) 2 ml BID IV FLUSH 05/11/17 21:00 05/13/17 09:08 (Zofran Inj) 4 mg Q6H PRN IVP 05/11/17 19:15 (Heparin Inj) 5,000 units Q12H SQ 05/11/17 20:00 05/13/17 09:08 (Narcan Inj) 0.4 mg UNSCH PRN IV 05/11/17 19:15 (Jen-Colace) 1 tab BID PO 05/11/17 21:00 05/13/17 09:08 (Milk Of Magnesia Liq) 30 ml Q12H PRN PO 05/11/17 19:15 (Senokot) 17.2 mg Q12H PRN PO 05/11/17 19:15 (Dulcolax Supp) 10 mg DAILY PRN RECTAL 05/11/17 19:15 (Lactulose Liq) 30 ml DAILY PRN PO 05/11/17 19:15 (Aspirin Chew) 81 mg HS CHEW 05/11/17 21:00 05/12/17 21:54 (Tenormin) 12.5 mg HS PO 05/11/17 21:00 05/12/17 21:56 (Flexeril) 5 mg HS PO 05/11/17 21:00 05/12/17 21:54 (Prinivil) 5 mg HS PO 05/11/17 21:00 05/12/17 21:54 (Pravachol) 10 mg HS PO 05/11/17 21:00 05/12/17 21:56 (Aldactone) 25 mg HS PO 05/11/17 21:00 05/12/17 21:55 (Protonix) 40 mg DAILY PO 05/12/17 09:00 05/13/17 09:08 (Buhl 10-325 Mg) 1 tab Q6H PRN PO 05/11/17 23:45 05/13/17 09:14 (Folate) 1 mg DAILY PO 05/12/17 09:00 05/13/17 09:08 (Vitamin B1) 100 mg DAILY PO 05/12/17 09:00 05/13/17 09:08 Vital Signs / I&O Vital Signs Date Time Temp Pulse Resp B/P Pulse Ox O2 Delivery O2 Flow Rate FiO2 05/13/17 12:00 98.4 88 20 150/90 99 05/13/17 09:16 116 05/13/17 08:00 98.0 96 20 151/79 96 05/13/17 04:00 98.9 98 18 142/89 97 05/13/17 00:00 97.8 84 16 146/80 98 05/12/17 20:00 85 05/12/17 20:00 98.1 90 16 143/93 100 05/12/17 16:00 98.1 80 18 136/77 100 I/O 05/12/17 05/12/17 05/12/17 05/13/17 05/13/17 05/13/17 07:00 15:00 23:00 07:00 15:00 23:00 Intake Total 120 ml 669 ml Output Total 0 ml 700 ml 0 ml 120 ml Balance 120 ml -31 ml 0 ml -120 ml Intake Oral 120 ml 480 ml IV Total 189 ml Output Urine Total 0 ml 700 ml 0 ml 120 ml # Bowel Movements 0 1 Physical Exam GENERAL: In NAD SKIN: Warm and dry. HEAD: Normocephalic. EYES: No scleral icterus. No injection or drainage. NECK: Supple, trachea midline. No JVD or lymphadenopathy. CARDIOVASCULAR: irregular rate and rhythm without murmurs, gallops, or rubs. RESPIRATORY: Breath sounds equal bilaterally. No accessory muscle use. GASTROINTESTINAL: Abdomen soft, non-tender, nondistended. MUSCULOSKELETAL: No cyanosis, or edema. Laboratory Laboratory Tests Test 05/13/17 09:14 White Blood Count 3.9 TH/MM3 Red Blood Count 3.36 MIL/MM3 Hemoglobin 11.3 GM/DL Hematocrit 32.3 % Mean Corpuscular Volume 96.1 FL Mean Corpuscular Hemoglobin 33.7 PG Mean Corpuscular Hemoglobin 35.1 % Concent Red Cell Distribution Width 13.5 % Platelet Count 142 TH/MM3 Mean Platelet Volume 8.1 FL Neutrophils (%) (Auto) 58.2 % Lymphocytes (%) (Auto) 18.1 % Monocytes (%) (Auto) 11.7 % Eosinophils (%) (Auto) 11.2 % Basophils (%) (Auto) 0.8 % Neutrophils # (Auto) 2.3 TH/MM3 Lymphocytes # (Auto) 0.7 TH/MM3 Monocytes # (Auto) 0.5 TH/MM3 Eosinophils # (Auto) 0.4 TH/MM3 Basophils # (Auto) 0.0 TH/MM3 CBC Comment DIFF FINAL Differential Comment Sodium Level 134 MEQ/L Potassium Level 4.2 MEQ/L Chloride Level 100 MEQ/L Carbon Dioxide Level 27.5 MEQ/L Anion Gap 7 MEQ/L Blood Urea Nitrogen 21 MG/DL Creatinine 1.15 MG/DL Estimat Glomerular Filtration 64 ML/MIN Rate Random Glucose 128 MG/DL Calcium Level 8.6 MG/DL Magnesium Level 2.0 MG/DL Triglycerides Level 92 MG/DL Cholesterol Level 73 MG/DL LDL Cholesterol 17 MG/DL HDL Cholesterol 38.1 MG/DL Cholesterol/HDL Ratio 1.91 RATIO 25-Hydroxy Vitamin D Total 40.5 ng/ML Imaging Last Impressions Cervical Spine MRI 05/11/17 1846 Signed Impressions: Service Date/Time: Thursday, May 11, 2017 20:14 - CONCLUSION: 1. Moderate spinal stenosis and bilateral foraminal narrowing at C3-C4. 2. Mild spinal stenosis and moderate bilateral foraminal narrowing at C4-C5 and C5-C6. 3. Minimal spinal stenosis and mild bilateral foraminal narrowing at C6-C7. Anthony Mcleod MD Cervical Spine CT 05/11/17 1739 Signed Impressions: Service Date/Time: Thursday, May 11, 2017 17:38 - CONCLUSION: 1. Degenerative change throughout as described above. 2. Widening of the right C3 C4 facet joint. This could be related to degenerative change. There is clearly degenerative change in the superior and inferior articular facets at this level. Acute widening of this joint cannot be excluded but no other facet joint or disc space appears widened. Given the lack of any other findings, this is likely related to degenerative change. It could be further evaluated with an MRI examination if the patient has neck pain, especially on the right side. 3. Moderate stenosis at C3-C4 level secondary to a diffuse disc bulge and facet hypertrophy. David Kolb MD Head CT 05/11/17 1721 Signed Impressions: Service Date/Time: Thursday, May 11, 2017 17:38 - CONCLUSION: No acute disease. Anthony Mcleod MD Chest X-Ray 05/11/17 1721 Signed Impressions: Service Date/Time: Thursday, May 11, 2017 17:31 - CONCLUSION: No acute disease. David Kolb MD Assessment and Plan Problem List: (1) Chest pain (2) Afib (3) CAD (coronary artery disease) (4) ETOH abuse (5) Hypertension (6) HLD (hyperlipidemia) Assessment and Plan Symptoms improved. Cardiac enzymes negative. No evidence of ACS. Discharge home. Will schedule f/u and further evaluation as outpatient. Problem Qualifiers (1) Chest pain: Qualified Code: R07.9 - Chest pain, unspecified type Josafat Turner MD May 13, 2017 13:55
--- NOTE | 2017-05-13 17:07 | EKG ---
Date Performed: 05/12/2017 Time Performed: 12:19:00 PTAGE: 66 years EKG: ATRIAL FIBRILLATION ABNORMAL RHYTHM ECG PREVIOUS TRACING : 05/11/2017 19.36 Compared to prior tracing no significant change DOCTOR: Scottie Grant Interpretating Date/Time 05/13/2017 17:07:19
== END 2017-05-13 15:51 | disposition home health service (06) | DRG 313 ==
LOC: PHED 17:15 → PHEDA 18:50 → N04B 21:22
PROVIDERS: ADMIT Family Medicine; ATTEND Family Medicine
DX: R07.89 Other chest pain (principal); I25.2 Old myocardial infarction; E87.1 Hypo-osmolality and hyponatremia; I48.91 Unspecified atrial fibrillation; M48.02 Spinal stenosis, cervical region; R55 Syncope and collapse; I10 Essential (primary) hypertension; Z79.82 Long term (current) use of aspirin; K21.9 Gastro-esophageal reflux disease without esophagitis; F10.129 Alcohol abuse with intoxication, unspecified; Y90.6 Blood alcohol level of 120-199 mg/100 ml; I25.10 Atherosclerotic heart disease of native coronary artery without angina pectoris; Z95.5 Presence of coronary angioplasty implant and graft; E78.5 Hyperlipidemia, unspecified; M19.90 Unspecified osteoarthritis, unspecified site; Z87.891 Personal history of nicotine dependence; E87.6 Hypokalemia
CPT/HCPCS: 70450; 71010; 72125; 72141; 80048; 80053; 80061; 80307; 82306; 82550; 82948; 83735; 84100; 84439; 84443; 84481; 84484; 85025; 85610; 85730; 93005; J1644; J3475; J7030

== ENCOUNTER 2017-09-17 17:00 | Emergency (ER) | payer MEDICARE, OTHER ==
[2017-09-17 17:00] VITALS: BP 125/89; PULSE 93; RESP 18; TEMP 98.1; O2SAT 98
[~2017-09-17 17:00] MED LIST changes: -ASPI81CH CHEW; +ASPI81CH25 CHEW; -CIPR0.3S EACH EAR; +CYCL10TA PO; -CYCL5TAB PO; +FOLI1TAB6 PO; +PANT40TA3 PO; +SPIR25 PO; -SPIR25TA PO; +THIA100 PO
[2017-09-17 17:05] VITALS: BP 133/84; TEMP 98.3; O2SAT 100
[2017-09-17] MEDS ORDERED: SODIUM CHLOR 0.9% 1000 ML INJ 1,000 ML IV ONE (17:15)
[2017-09-17] MEDS ORDERED: DIPHTH/TETANUS/ACEL PERTUSSIS (BOOSTER) 0.5 ML VIAL/PFS IM ONE (17:15)
--- NOTE | 2017-09-17 17:21 | PD ---
HPI Chief Complaint: Fall Time Seen by Provider: 17:11 Travel History International Travel<30 days: No Contact w/Intl Traveler<30days: No Traveled to known affect area: No History of Present Illness HPI Patient is a 66-year-old male with history of hypertension, hyperlipidemia, atrial fibrillation, presents to the emergency room for alcohol intoxication and falls. Reports that [place], bystanders reported that he had fallen multiple times. When EMS arrived, patient appeared confused. Patient endorses that he is an alcoholic, reports that he drank heavily today as he was angry at his landlord for increasing his rent. Patient denies any suicidal or homicidal ideations at this time. Patient denies any headache or dizziness, denies any chest pain or shortness of breath. Patient with no complaints at this time. PFSH Past Medical History Hx Anticoagulant Therapy: Yes Arthritis: Yes Anxiety: Yes Cancer: Yes (PATIENT DOESN'T REMEMBER) Cardiac Catheterization: Yes Cardiovascular Problems: Yes (NM, HTN, A Fib ) High Cholesterol: Yes Chest Pain: Yes Cerebrovascular Accident: Yes Coronary Artery Disease: Yes Diabetes: No (DENIES) Diminished Hearing: No Endocrine: No Genitourinary: No Hypertension: Yes Immune Disorder: No Musculoskeletal: Yes Neurologic: Yes Psychiatric: No Reproductive: No Respiratory: No Myocardial Infarction: Yes (x4 or 5) Radiation Therapy: Yes Past Surgical History Abdominal Surgery: Yes (APPENDECTOMY) Appendectomy: Yes Cardiac Surgery: Yes (STENTS) Coronary Stent: Yes (x 5) Social History Alcohol Use: Yes (about 8 beers every day) Tobacco Use: No (QUIT X 5 WEEKS) Substance Use: Yes Allergies-Medications (Allergen,Severity, Reaction): Coded Allergies: penicillin G (Unverified Allergy, Severe, SWELLING ALL OVER BODY, 09/17/17) watermelon (Unverified Allergy, Intermediate, SWELLING, 09/17/17) Reported Meds & Prescriptions Reported Meds & Active Scripts Active Gnp Vitamin B-1 (Thiamine HCl) 100 Mg Tab 100 Mg PO DAILY Aspirin Low Strength (Aspirin) 81 Mg Chew 81 Mg CHEW HS Aldactone (Spironolactone) 25 Mg Tab 25 Mg PO HS Pravastatin 10 Mg Tab 10 Mg PO HS Atenolol 25 Mg Tab 12.5 Mg PO HS Lisinopril 5 Mg Tab 5 Mg PO HS Review of Systems ROS Limitations: Intoxication General / Constitutional: No: Fever Eyes: No: Visual changes HENT: No: Headaches Cardiovascular: No: Chest Pain or Discomfort Respiratory: No: Shortness of Breath Gastrointestinal: No: Abdominal Pain Genitourinary: No: Dysuria Musculoskeletal: No: Pain Skin: No Rash Neurologic: No: Weakness Psychiatric: No: Depression Endocrine: No: Polydipsia Hematologic/Lymphatic: No: Easy Bruising Physical Exam Exam Limitations: Intoxication Narrative GENERAL: NAD SKIN: Focused skin assessment warm/dry. HEAD: Normocephalic. Patient with abrasions to forehead EYES: Pupils equal and round. No scleral icterus. No injection or drainage. ENT: No nasal bleeding or discharge. Mucous membranes pink and moist. NECK: Trachea midline. No JVD. CARDIOVASCULAR: Regular rate and rhythm. No murmur appreciated. RESPIRATORY: No accessory muscle use. Clear to auscultation. Breath sounds equal bilaterally. GASTROINTESTINAL: Abdomen soft, non-tender, nondistended. Hepatic and splenic margins not palpable. MUSCULOSKELETAL: No obvious deformities. No clubbing. No cyanosis. No edema. NEUROLOGICAL: Awake and alert. No obvious cranial nerve deficits. Motor grossly within normal limits. Normal speech. PSYCHIATRIC: Anxious mood and affect; patient intoxicated Data Data Last Documented VS Vital Signs Date Time Temp Pulse Resp B/P (MAP) Pulse Ox O2 Delivery O2 Flow Rate FiO2 09/17/17 20:13 90 16 133/87 (102) 100 Room Air 09/17/17 17:[address] Brain W/O Iv Contrast(Rout) (09/17/17 17:11) Ct Cerv Spine W/O Contrast (09/17/17 17:11) Iv Access Insert/Monitor (09/17/17 17:11) Ecg Monitoring (09/17/17 17:11) Oxygen Administration (09/17/17 17:11) Difh-Jqj-Dgszad (Booster) Inj (Boostrix (09/17/17 17:15) Sodium Chlor 0.9% 1000 Ml Inj (Ns 1000 M (09/17/17 17:15) Basic Metabolic Panel (Bmp) (09/17/17 17:12) Prothrombin Time / Inr (Pt) (09/17/17 17:12) Potassium Chloride (Kcl) (09/17/17 18:45) Chest, Pa & Lat (09/17/17 20:11) Acetaminophen (Tylenol) (09/17/17 20:15) Tetanus/Diphtheria Tox Adult (Tetanus/Di (09/17/17 21:30) Labs Laboratory Tests Test 09/17/17 17:50 Prothrombin Time 12.4 SEC Prothromb Time International Ratio 1.1 RATIO Blood Urea Nitrogen 10 MG/DL Creatinine 1.20 MG/DL Random Glucose 98 MG/DL Calcium Level 8.4 MG/DL Sodium Level 132 MEQ/L Potassium Level 3.4 MEQ/L Chloride Level 94 MEQ/L Carbon Dioxide Level 26.3 MEQ/L Anion Gap 12 MEQ/L Estimat Glomerular Filtration Rate 61 ML/MIN MDM Medical Decision Making Medical Screen Exam Complete: Yes Emergency Medical Condition: Yes Medical Record Reviewed: Yes Interpretation(s) Vital Signs Date Time Temp Pulse Resp B/P (MAP) Pulse Ox O2 Delivery O2 Flow Rate FiO2 09/17/17 17:00 98.1 93 18 125/89 (101) 98 Differential Diagnosis ICH, alcohol intoxication, cervical spine fracture Narrative Course 66 year old male who presents to ER with c/o of alcohol intoxication with multiple abrasion to face. Patient denies si/hi - patient with no complaints at this time. During the course of the patients emergency department visit, the patients history, examination, and differential diagnosis were reviewed with the patient. The patient was placed on a director of cardiac cath lab with oximetry and frequent blood pressure monitoring. The patient had [-] IV access obtained and blood work sent for analysis. The patient was initially provided IVF The patients laboratory studies were reviewed and remarkable for: CBC & BMP Diagram 09/17/17 17:50 Calcium Level 8.4 L Radiology studies were reviewed and remarkable for: CT of head: negative for acute process CT of neck: 1. Moderate degenerative changes as described above. There is no evidence of acute fracture. Patient intoxicated at this time. Once sober, plan to discharge patient. Patient clinically sober, he is alert and oriented 3, patient is ambulating emergency with normal gait. Patient is said to be discharged to home with outpatient follow-up. All labs as well as all studies reviewed with patient in detail. He will follow up with his primary care doctor and will return to emergency room as needed. Diagnosis Primary Impression: ETOH abuse Additional Impressions: Alcohol intoxication Qualified Codes: F10.920 - Alcohol use, unspecified with intoxication, uncomplicated Hypokalemia Head injury Qualified Codes: S09.90XA - Unspecified injury of head, initial encounter Patient Instructions: General Instructions Additional Instructions: Please provide patient with a copy of their lab work and studies at discharge* * Please follow up with your primary care doctor in 2-3 days Return to the ER if symptoms worsen or progress Return to the ER as needed Please drink alcohol responsibility Disposition: 01 DISCHARGE HOME Condition: Stable Sveta Leyva DO Sep 17, 2017 17:21
--- NOTE | 2017-09-17 17:35 | RADRPT ---
EXAM DATE/TIME: 09/17/2017 17:16 [facility] COMPARISON: CT BRAIN W/O CONTRAST, May 11, 2017, 17:38. INDICATIONS : Trauma, fall. RADIATION DOSE: 64.28 CTDIvol (mGy) MEDICAL HISTORY : None SURGICAL HISTORY : None. ENCOUNTER: Initial ACUITY: 1 day PAIN SCALE: Non-responsive LOCATION: cranial TECHNIQUE: Multiple contiguous axial images were obtained of the head. Using automated exposure control and adj ustment of the mA and/or kV according to patient size, radiation dose was kept as low as reasonably a chievable to obtain optimal diagnostic quality images. DICOM format image data is available electro nically for review and comparison. FINDINGS: CEREBRUM: The ventricles are normal for age. No evidence of midline shift, mass lesion, hemorrhage or acute in farction. No extra-axial fluid collections are seen. POSTERIOR FOSSA: The cerebellum and brainstem are intact. The 4th ventricle is midline. The cerebellopontine angle i s unremarkable. EXTRACRANIAL: The visualized portion of the orbits is intact. SKULL: The calvaria is intact. No evidence of skull fracture. CONCLUSION: Negative for an acute process. Norberto Ramey MD FACR on September 17, 2017 at 17:33 Board Certified Radiologist. This report was verified electronically.
--- NOTE | 2017-09-17 17:55 | RADRPT ---
EXAM DATE/TIME: 09/17/2017 17:16 [facility] COMPARISON: CT CERVICAL SPINE W/O CONTRAST, May 11, 2017, 17:38. INDICATIONS : Trauma, fall. RADIATION DOSE: 26.35 CTDIvol (mGy) MEDICAL HISTORY : None SURGICAL HISTORY : None. ENCOUNTER: Initial ACUITY: 1 day PAIN SCALE: Non-responsive LOCATION: neck TECHNIQUE: Volumetric scanning of the cervical spine was performed. Multiplanar reconstructions in the sagittal, coronal and oblique axial planes were performed. Using automated exposure control and adjustment o f the mA and/or kV according to patient size, radiation dose was kept as low as reasonably achievable to obtain optimal diagnostic quality images. DICOM format image data is available electronically f or review and comparison. FINDINGS: CT of the cervical spine was performed in sagittal and axial planes. There is anterolisthesis likely related to facet arthritis at C5-C6 of 1-2 mm. 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 There is multilevel disc space narrowing and marginal ost eophyte formation maximal at C4-C5. No focal areas of marrow replacement are identified. The cranioce rvical junction appears normal. C2-C3: No significant abnormalities identified. C3-C4: There is mild annular bulge of the disc. There is osteophytic ridging along the posterior aspect of v ertebral body. There is mild right sided neural foraminal narrowing. C4-C5: No significant abnormalities identified. C5-C6: There is mild annular bulge of the disc. There is moderate facet arthritis bilaterally with ligamentu m flavum hypertrophy. There is mild neural foraminal narrowing bilaterally. There is no significant s mallorie canal stenosis. C6-C7: There is no evidence of disc protrusion or spinal canal stenosis. There is mild facet arthritis bilat erally. The neural foramina are clear bilaterally. C7-T1: No significant abnormalities identified. CONCLUSION: 1. Moderate degenerative changes as described above. There is no evidence of acute fracture. Suleman Elizabeth MD on September 17, 2017 at 17:41 Board Certified Radiologist. This report was verified electronically.
[2017-09-17 18:10] LABS: POTASSIUM 3.4 MEQ/L (3.5-5.1)
[2017-09-17 18:13] LABS: BICARBONATE 26.3 MEQ/L (21.0-32.0)
[2017-09-17 18:14] LABS: INTERNATIONAL NORMALIZED RATIO 1.1 RATIO; PROTHROMBIN TIME - PATIENT 12.4 SEC (9.8-11.6)
[2017-09-17] MEDS ORDERED: POTASSIUM CHLORIDE 10 MEQ CONTROLLED RELEASE TAB PO ONE (18:45)
[2017-09-17 20:13] VITALS: BP 133/87; PULSE 90; RESP 16; O2SAT 100
[2017-09-17] MEDS ORDERED: ACETAMINOPHEN 500 MG CPLT PO ONE (20:15)
--- NOTE | 2017-09-17 21:16 | RADRPT ---
EXAM DATE/TIME: 09/17/2017 20:17 [facility] COMPARISON: No previous studies available for comparison. INDICATIONS : Chest pain post fall today MEDICAL HISTORY : Myocardial infarction SURGICAL HISTORY : None. ENCOUNTER: Initial ACUITY: 1 day PAIN SCORE: 5/10 LOCATION: Bilateral chest FINDINGS: PA and lateral views of the chest demonstrate the lungs to be symmetrically aerated without evidence of mass, infiltrate or effusion. The cardiomediastinal contours are unremarkable. Osseous structure s are intact. Mild atherosclerotic changes are present in the aorta. CONCLUSION: No acute disease. Raad Arnold MD on September 17, 2017 at 21:13 Board Certified Radiologist. This report was verified electronically.
[2017-09-17] MEDS ORDERED: TETANUS/DIPHTHERIA TOXOID ADULT 0.5 ML VIAL IM ONE (21:30)
== END 2017-09-17 21:50 | disposition home or self-care (01) ==
LOC: PHED 17:00
DX: F10.129 Alcohol abuse with intoxication, unspecified (principal); E87.6 Hypokalemia; I10 Essential (primary) hypertension; I25.10 Atherosclerotic heart disease of native coronary artery without angina pectoris; S09.90XA Unspecified injury of head, initial encounter; W19.XXXA Unspecified fall, initial encounter; Y92.832 Beach as the place of occurrence of the external cause; Z23 Encounter for immunization; Z87.891 Personal history of nicotine dependence
CPT/HCPCS: 70450; 71020; 72125; 80048; 85610; 90471; 90715; 96360; 96361; 99285; J7030